=== PATIENT | male | born 1960 | race Caucasian/White ===

== ENCOUNTER 2021-01-22 12:39 | Outpatient (CLI) | payer OTHER, SELFPAY ==
--- NOTE | ~2021-01-22 | MR_ITS ---
EXAMINATION: MR lower leg LT wo con DATE: 01/22/2021 13:45 INDICATION: Localized swelling, mass and lump at the left lower leg TECHNIQUE: Magnetic resonance imaging (MRI) of the left lower leg was performed without intravenous c ontrast. Sequences included axial, sagittal and coronal T1-weighted FSE and fluid sensitive FSE STIR. The contralateral right lower leg is included on the coronal images. COMPARISON: Left tibia/fibular radiographs dated 01/14/2021 FINDINGS: Bone alignment is normal. Nonspecific mild marrow edema underlying the intercondylar eminence at the proximal left femur. Marrow signal is otherwise normal. No fracture or pathologic marrow replacing pr ocess. Symmetric muscle bulk and signal throughout both calves with diffuse minimal fatty atrophy of the bilateral gastrocnemius and soleus muscles which may be related to age. The visualized portions o f the tendons between the knee and ankle appear normal. No abnormal masses or fluid collections ident ified. Neurovascular structures are unremarkable. IMPRESSION: 1. Abnormal masses fluid collections or evident soft tissue swelling at the left calf which appears r elatively symmetric with the right calf. 2. Nonspecific mild marrow edema underlying the intercondylar eminence of the proximal left tibia. Reviewed, dictated and finalized at location B. IMPRESSION: 1. Abnormal masses fluid collections or evident soft tissue swelling at the lef t calf which appears relatively symmetric with the right calf. 2. Nonspecific mild marrow edema underlying the intercondylar eminence of the p roximal left tibia.
== END 2021-01-22 12:40 | disposition home or self-care (01) ==
PROVIDERS: PCP Internal Medicine; Visit Provider Orthopaedic Surgery
DX: R22.42 Localized swelling, mass and lump, left lower limb (principal)
CPT/HCPCS: 73718

== ENCOUNTER → 2021-06-05 13:41 | Outpatient (CLI) | payer OTHER, SELFPAY ==
--- NOTE | ~2021-06-05 | MR_ITS ---
EXAMINATION: MR lumbar spine wo con DATE: 06/05/2021 14:22 INDICATION: Lumbar radiculopathy. TECHNIQUE: Magnetic resonance imaging (MRI) of the lumbar spine was performed without intravenous con trast. Sequences included sagittal T2-weighted FSE, sagittal T2-weighted FS FSE, sagittal T1-weighted FSE, and axial T2-weighted FSE. COMPARISON: Lumbar spine MRI 06/08/2004 FINDINGS: There is 3 degrees dextrocurvature of lumbar spine. There is 6 mm anterolisthesis of L4 on L5. There is mild chronic anterior wedging of T11-L3 vertebral bodies. There is a compression fractur e of inferior endplate of L1 with less than 1/5 loss of height and bone marrow edema. There is modera tely decreased disc height from L1-L2 through L4-L5 and mildly decreased disc height at L5-S1. Epidur al lipomatosis is noted. The distal spinal cord signal intensity is normal. The conus medullaris is a t L1. The following disc levels are specifically discussed: L1-L2: The disc is bulging. There is severe right and moderate left facet joint osteoarthritis. There is mild bilateral neural foraminal stenosis. There is mild central canal stenosis. L2-L3: The disc is bulging and has an annular fissure. There is severe bilateral facet joint osteoart hritis. There is mild bilateral neural foraminal stenosis. There is mild central canal stenosis. L3-L4: The disc is bulging and has an annular fissure. There is severe bilateral facet joint osteoart hritis. There is moderate bilateral neural foraminal stenosis. There is severe central canal stenosis . L4-L5: The disc is bulging and has an annular fissure. There is severe bilateral facet joint osteoart hritis. There is moderate bilateral neural foraminal stenosis. There is severe central canal stenosis . L5-S1: The disc is bulging and has an annular fissure. There is severe bilateral facet joint osteoart hritis. There is mild bilateral neural foraminal stenosis. There is mild central canal stenosis. IMPRESSION: 1. Compression fracture of inferior endplate of L1, likely subacute. 2. Severe lumbar spondylosis. Reviewed, dictated and finalized at location B.
== END ==
PROVIDERS: Visit Provider Nurse Practitioner Adult Health
DX: M47.26 Other spondylosis with radiculopathy, lumbar region (principal)
CPT/HCPCS: 72148

== ENCOUNTER 2021-11-14 08:03 | Emergency (ER) | payer OTHER, SELFPAY ==
--- NOTE | 2021-11-14 08:05 | ED.SKABFB ---
HPI - Skin/Abscess/Foreign Bdy General Chief complaint: Skin/Abscess/Foreign Body Stated complaint: Infection in belly button Time Seen by Provider: 11/14/21 08:10 Source: patient, RN notes reviewed and old records reviewed Mode of arrival: ambulatory Limitations: no limitations History of Present Illness HPI narrative: 61-year-old male presents to the [facility] with redness and inflammation to his bellybutton. States its been there since yesterday. Inside the bellybutton is bright red. Has been applying Neosporin and cleaning it. Noticed some redness surrounding tissue and came to the [facility] for evaluation. Denies fevers. No chest pain or abdominal pain. Related Data Home Medications Medication Instructions Recorded Confirmed alprazolam 1 mg tablet 1 mg PO DAILY 11/07/20 02/21/21 atorvastatin 10 mg tablet 10 mg PO DAILY 11/07/20 02/21/21 Allergies Allergy/AdvReac Type Severity Reaction Status Date / Time No Known Allergies Allergy Verified 11/14/21 08:15 Review of Systems Review of Systems: All systems reviewed & are unremarkable except as noted in HPI and below Constitutional: Constitutional: Reports no additional constitutional complaints, Denies chills and Denies fever(s) Eyes: Eyes: Reports no additional eye complaints ENT: Reports system reviewed and no additional complaints, except as documented Cardiovascular: Cardiovascular: Reports no additional cardiovascular complaints, Denies chest pain and Denies dyspnea Respiratory: Respiratory: Reports no additional respiratory complaints, Denies cough and Denies dyspnea Gastrointestinal: Gastrointestinal: Reports no additional gastrointestinal complaints, Denies abdominal pain, Denies nausea and Denies vomiting Musculoskeletal: Musculoskeletal: Reports no additional musculoskeletal complaints Integumentary/Breasts: Skin/Breast: Reports as per HPI and Reports erythema (Bellybutton) Neurologic: Reports system reviewed and no additional complaints, except as documented Psychiatric: Psychiatric: Reports no additional psychiatric complaints Allergic/Immunologic: Allergic/Immunologic: Reports no additional allergic/immunologic complaints [facility] Past Medical History Medical History (Updated 11/14/21 @ 08:18 by Holli Stout) Anxiety High cholesterol Surgical History Surgical History History of appendectomy History of sinus surgery Social History Social History Smoking packs per day: 1 Smoking cigarettes per day: 20.0 Years smoked: 20 Smoking pack-years: 20.00 Second hand tobacco smoke exposure: Yes Alcohol intake: current Drinks per week: 5 Substance use: never Substance use type: does not use Gender identity (if verbalized by the patient): Male Comments At the time of my signature, I reviewed and agree with the nursing past medical, surgical, social, and family history. There is no relevant family history pertinent to the patient complaint. Exam Const: General: healthy appearing, no acute distress and alert Nutritional Appearance: well nourished and obese Orientation/consciousness: patient oriented x3 Limitations: no limitations HENMT: Head: normal to inspection Eyes: Pupils: Equal, round and reactive pupils present Neck: Neck: normal visual inspection, no lymphadenopathy and no meningeal signs Chest: Chest palpation & inspection: normal inspection of the chest Resp: Effort & Inspection: normal respiratory effort Cardio: Rate: regular rate Rhythm: regular rhythm GI: GI Palp: Yes Soft to palpation, No Tenderness to palpation present (GI) and No Guarding due to palpation present (GI) Skin: Other: Erythema bellybutton with surrounding redness. No swelling noted. Has mild increased warmth. Some yellowish drainage noted and collected for culture Neuro: General: patient oriented x3, moves all extremities, no m
[2021-11-14 08:11] VITALS: BP 165/78; PULSE 92; RESP 16; TEMP 36.1; O2SAT 100
== END 2021-11-14 08:27 | disposition home or self-care (01) ==
PROVIDERS: Emergency Provider Nurse Practitioner; PCP Internal Medicine
DX: L03.316 Cellulitis of umbilicus (principal); F17.210 Nicotine dependence, cigarettes, uncomplicated; F41.9 Anxiety disorder, unspecified; E78.00 Pure hypercholesterolemia, unspecified
CPT/HCPCS: 87070; 87075; 87205; 99213; G0463

== ENCOUNTER 2021-11-18 10:11 | Emergency (ER) | payer OTHER, SELFPAY ==
[2021-11-18 10:18] VITALS: BP 169/79; PULSE 97; RESP 16; TEMP 36.3; O2SAT 100
--- NOTE | 2021-11-18 10:26 | ED.SKABFB ---
HPI - Skin/Abscess/Foreign Bdy General Chief complaint: Skin/Abscess/Foreign Body Stated complaint: Bumps on Navel Time Seen by Provider: 11/18/21 10:28 Source: patient, RN notes reviewed and old records reviewed Mode of arrival: ambulatory Limitations: no limitations History of Present Illness HPI narrative: 61-year-old male returns to the [facility] with complaints of the cellulitis is now having vesicular areas around the umbilicus. States that the redness has improved the umbilical area. Denies any pain. Has been using bacitracin and taking the Bactrim as prescribed. Related Data Home Medications Medication Instructions Recorded Confirmed alprazolam 1 mg tablet 1 mg PO DAILY 11/07/20 11/18/21 atorvastatin 10 mg tablet 10 mg PO DAILY 11/07/20 11/18/21 Allergies Allergy/AdvReac Type Severity Reaction Status Date / Time No Known Allergies Allergy Verified 11/18/21 10:15 Review of Systems Review of Systems: All systems reviewed & are unremarkable except as noted in HPI and below Constitutional: Constitutional: Reports no additional constitutional complaints, Denies chills and Denies fever(s) Eyes: Eyes: Reports no additional eye complaints ENT: Reports system reviewed and no additional complaints, except as documented Cardiovascular: Cardiovascular: Reports no additional cardiovascular complaints, Denies chest pain and Denies dyspnea Respiratory: Respiratory: Reports no additional respiratory complaints, Denies cough and Denies dyspnea Gastrointestinal: Gastrointestinal: Reports no additional gastrointestinal complaints, Denies abdominal pain, Denies nausea and Denies vomiting Musculoskeletal: Musculoskeletal: Reports no additional musculoskeletal complaints Integumentary/Breasts: Skin/Breast: Reports as per HPI and Reports rash (Umbilical area) Neurologic: Reports system reviewed and no additional complaints, except as documented Psychiatric: Psychiatric: Reports no additional psychiatric complaints Allergic/Immunologic: Allergic/Immunologic: Reports no additional allergic/immunologic complaints [facility] Past Medical History Medical History (Updated 11/18/21 @ 10:38 by Holli Stout) Anxiety High cholesterol Surgical History Surgical History History of appendectomy History of sinus surgery Social History Social History Smoking packs per day: 1 Smoking cigarettes per day: 20.0 Years smoked: 20 Smoking pack-years: 20.00 Second hand tobacco smoke exposure: Yes Alcohol intake: current Drinks per week: 5 Substance use: never Substance use type: does not use Gender identity (if verbalized by the patient): Male Comments At the time of my signature, I reviewed and agree with the nursing past medical, surgical, social, and family history. There is no relevant family history pertinent to the patient complaint. Exam Const: General: healthy appearing, no acute distress and alert Nutritional Appearance: well nourished Orientation/consciousness: patient oriented x3 Limitations: no limitations HENMT: Head: normal to inspection Ears: external ears normal Eyes: Pupils: Equal, round and reactive pupils present Neck: Neck: normal visual inspection, no lymphadenopathy and no meningeal signs Chest: Chest palpation & inspection: normal inspection of the chest Resp: Effort & Inspection: normal respiratory effort and no use of accessory muscles Auscultation: clear to auscultation bilaterally Cardio: Rate: regular rate Rhythm: regular rhythm GI: GI Palp: Yes Soft to palpation, No Tenderness to palpation present (GI), No Guarding due to palpation present (GI) and No Rigid due to palpation Skin: General skin exam: crusts (Cyst right side of the umbilicus), no ecchymosis and no erythema Trauma: no lacerations or abrasions Wounds: no wounds Other: Multiple vesicular areas around the umbi
== END 2021-11-18 10:55 | disposition home or self-care (01) ==
PROVIDERS: Emergency Provider Nurse Practitioner; PCP Internal Medicine
DX: L01.00 Impetigo, unspecified (principal); F17.210 Nicotine dependence, cigarettes, uncomplicated; E78.00 Pure hypercholesterolemia, unspecified; F41.9 Anxiety disorder, unspecified
CPT/HCPCS: 99213; G0463

== ENCOUNTER 2022-10-15 08:06 | Emergency (ER) | payer OTHER, SELFPAY ==
--- NOTE | 2022-10-15 08:08 | ED.URI ---
HPI - URI/Sore Throat General Chief Complaint: Upper Respiratory Infection Stated Complaint: uri Time Seen by Provider: 10/15/22 08:07 Source: patient Mode of arrival: ambulatory Limitations: no limitations History of Present Illness HPI Narrative: Mr. Ni is a 62-year-old male patient presenting to the clinic today with complaints of runny nose, cough, and sinus pressure x 2 days. He reports no fever or chills. No known exposure to anybody with COVID, flu, or strep MD elicited complaint: sore throat and nasal congestion Related Data Home Medications Medication Instructions Recorded Confirmed alprazolam 1 mg tablet 1 mg PO DAILY 11/07/20 10/15/22 atorvastatin 10 mg tablet 10 mg PO DAILY 11/07/20 10/15/22 Allergies Allergy/AdvReac Type Severity Reaction Status Date / Time No Known Allergies Allergy Verified 11/18/21 10:15 Review of Systems Review of Systems: Pertinent positives per HPI. Patient denies any fever, chills, rash, headache, visual changes, dizziness, cough, shortness of breath, chest pain, palpitations, nausea, vomiting, diarrhea, constipation, abdominal pain, or any urinary issues. [facility] Past Medical History Medical History Anxiety High cholesterol Surgical History Surgical History History of appendectomy History of sinus surgery Social History Social History Smoking packs per day: 1 Smoking cigarettes per day: 20.0 Years smoked: 20 Smoking pack-years: 20.00 Second hand tobacco smoke exposure: Yes Alcohol intake: current Drinks per week: 5 Substance use: never Substance use type: does not use Gender identity (if verbalized by the patient): Male Comments At the time of my signature, I reviewed and agree with the nursing past medical, surgical, social, and family history. There is no relevant family history pertinent to the patient complaint. Exam Narrative: General: Well-developed, well nourished, in no apparent distress Head: Normocephalic, atraumatic Eyes: Pupils equally round and reactive to light bilaterally, EOM intact, sclera and conjunctive clear, no discharge, lids normal Ears: TMs intact and clear, ear canals clear, no drainage, grossly hearing normal. Nose: Nares patent, clear nasal discharge, no inflammation, no sinus tenderness. Mouth: Oral pharynx without lesions or masses, good dentition, MMM. Neck: Supple, trachea midline, no enlargement of anterior or posterior cervical nodes, no thyroid masses or goiter palpable. Cardio: Regular rate and rhythm, s1 and s2 normal, no murmur appreciated. Resp: Clear to auscultation bilaterally, no rhonchi, rales, wheezing or rubs Course Course Emergency Course: Portions of this record may have been created with voice recognition software. Level of Care: Express Care Visit Vital Signs Vital signs: Vital signs reviewed MDM - URI/Sore Throat MDM Narrative Medical decision making narrative: At the time of visit patient is resting comfortably on the exam table. I suspect patient has URI. Prescription for prednisone was sent to the pharmacy and supportive measures were discussed with the patient he voiced understanding discharge instructions and agrees to treatment plan. Differential Diagnosis Differential diagnosis: Likely upper respiratory infection, otitis media, sinusitis, viral infection, bronchitis, influenza, pharyngitis and other ( COVID) Discharge Plan Discharge Clinical Impression: Acute upper respiratory infection Patient Disposition: Home, Self-Care Condition: Stable Instructions: Antibiotic Form, Upper Respiratory Infection (ED) Additional Instructions: Take prescription medications only as prescribed- prednisone Increase fluids and stay well hydrated Tylenol/motrin for pain/fever Flonase a
[2022-10-15 08:17] VITALS: BP 140/81; PULSE 108; RESP 16; TEMP 36.6; O2SAT 99
== END 2022-10-15 08:24 | disposition home or self-care (01) ==
PROVIDERS: Emergency Provider Nurse Practitioner Family; PCP Internal Medicine
DX: J06.9 Acute upper respiratory infection, unspecified (principal); F41.9 Anxiety disorder, unspecified; E78.00 Pure hypercholesterolemia, unspecified; F17.210 Nicotine dependence, cigarettes, uncomplicated
CPT/HCPCS: 99213; G0463

== ENCOUNTER 2022-10-29 11:15 | Emergency (ER) | payer OTHER, SELFPAY ==
[2022-10-29 11:25] VITALS: BP 155/80; PULSE 89; RESP 16; TEMP 36.6; O2SAT 100
--- NOTE | 2022-10-29 12:23 | ED.URI ---
HPI - URI/Sore Throat General Chief Complaint: Upper Respiratory Infection Stated Complaint: uri Time Seen by Provider: 10/29/22 12:18 Source: patient and RN notes reviewed Mode of arrival: ambulatory Limitations: no limitations History of Present Illness HPI Narrative: 62-year-old male presented for complaint of sinus pressure and congestion for over 2 weeks. He has taken a steroid as prescribed at the onset of symptoms but the pressure, headache, and ears feeling clogged has persisted. He is taking antihistamines, Flonase and [id number] medication without relief. Denies shortness of breath, wheezing, nausea, vomiting, diarrhea, fevers or chills. MD elicited complaint: cough Related Data Home Medications Medication Instructions Recorded Confirmed alprazolam 1 mg tablet 1 mg PO DAILY 11/07/20 10/15/22 atorvastatin 10 mg tablet 10 mg PO DAILY 11/07/20 10/15/22 Allergies Allergy/AdvReac Type Severity Reaction Status Date / Time No Known Allergies Allergy Verified 10/29/22 11:25 Review of Systems Review of Systems: Per [facility] Past Medical History Medical History Anxiety High cholesterol Surgical History Surgical History History of appendectomy History of sinus surgery Social History Social History Smoking packs per day: 1 Smoking cigarettes per day: 20.0 Years smoked: 20 Smoking pack-years: 20.00 Second hand tobacco smoke exposure: Yes Alcohol intake: current Drinks per week: 5 Substance use: never Substance use type: does not use Gender identity (if verbalized by the patient): Male Exam Narrative: GENERAL: well-appearing EYES: PERRLA, conjunctivae clear ENT: Mucous membranes moist. TM pearly curtis with dull light reflex bilaterally; no tragal tenderness. Oropharynx without lesions or exudate CHEST: Clear to auscultation, breath sounds equal. No wheezing, rhonchi, rales, or stridor. No respiratory distress, speaks in full sentences. HEART: Regular rate and rhythm. No murmur heard. SKIN: Warm, dry, no rash. NEURO: Alert and oriented x3. PSYCH: Normal mood and affect Course Course Emergency Course: Patient is aware of diagnosis, understands and agrees to treatment plan. Anticipatory guidance given. Patient agrees to follow-up as directed and is aware of reasons to seek care at the emergency department. Portions of this record may have been created with voice recognition software Level of Care: Express Care Visit Vital Signs Vital signs: Vital Signs Temperature 97.9 F 10/29/22 11:25 Pulse Rate 89 10/29/22 11:25 Respiratory Rate 16 10/29/22 11:25 Blood Pressure 155/80 H 10/29/22 11:25 Pulse Oximetry 100 10/29/22 11:25 Oxygen Delivery Room Air 10/29/22 11:25 Temperature 97.9 F 10/29/22 11:25 Pulse Rate 89 10/29/22 11:25 Respiratory Rate 16 10/29/22 11:25 Blood Pressure 155/80 H 10/29/22 11:25 Pulse Oximetry 100 10/29/22 11:25 Oxygen Delivery Room Air 10/29/22 11:25 reviewed MDM - URI/Sore Throat MDM Narrative Medical decision making narrative: Advised supportive measures and signs/symptoms to go to the ER. Pt is appropriate for outpt treatment and f/u. Differential Diagnosis Differential diagnosis: Likely upper respiratory infection, sinusitis and viral infection Discharge Plan Discharge Clinical Impression: Upper respiratory infection Patient Disposition: Home, Self-Care Condition: Stable Instructions: Antibiotic Form, Rhinosinusitis (ED) Additional Instructions: Take medication as directed Continue Flonase spray and Zyrtec (or Claritin/Laura) over the counter Cough syrup may cause drowsiness; avoid driving or take it at night time. Tylenol 1000mg every 8 hours as needed for pain Symptomatic treatment includes: rest, fluids,
== END 2022-10-29 12:26 | disposition home or self-care (01) ==
PROVIDERS: Emergency Provider Nurse Practitioner Family; PCP Internal Medicine
DX: J06.9 Acute upper respiratory infection, unspecified (principal); F17.210 Nicotine dependence, cigarettes, uncomplicated; F41.9 Anxiety disorder, unspecified; E78.00 Pure hypercholesterolemia, unspecified
CPT/HCPCS: 99213; G0463

== ENCOUNTER 2022-12-18 08:04 | Emergency (ER) | payer OTHER, SELFPAY ==
[2022-12-18 08:16] VITALS: BP 149/76; PULSE 84; RESP 16; TEMP 36.7; O2SAT 99
--- NOTE | 2022-12-18 08:33 | ED.SKABFB ---
HPI - Skin/Abscess/Foreign Bdy General Chief complaint: Skin/Abscess/Foreign Body Stated complaint: ear infection Time Seen by Provider: 12/18/22 08:33 Source: patient Mode of arrival: ambulatory Limitations: no limitations History of Present Illness HPI narrative: patient is a 62-year-old man having right ear redness, swelling, wound since Thursday. patient states he has used Bactroban and triple antibiotic ointment with no relief. patient reports using Q-tips in the ear canal. states it drained at night and uses a tissue. denies any pain around the ear. Related Data Home Medications Medication Instructions Recorded Confirmed alprazolam 1 mg tablet 1 mg PO DAILY 11/07/20 12/18/22 atorvastatin 10 mg tablet 10 mg PO DAILY 11/07/20 12/18/22 metoprolol succinate 25 mg 25 mg PO DAILY 12/18/22 12/18/22 tablet,extended release 24 hr Allergies Allergy/AdvReac Type Severity Reaction Status Date / Time No Known Allergies Allergy Verified 12/18/22 08:11 Review of Systems Review of Systems: CONSTITUTIONAL: Denies malaise, chills, sweats, or fever.? EYES: Denies visual changes, redness, or discharge.? ENT: denies rhinorrhea, congestion, sore throat.? reports right otalgia CARDIOVASCULAR: Denies chest pain, palpitations, or edema.? RESPIRATORY: Denies dyspnea and cough? GASTROINTESTINAL: Denies abdominal pain, nausea, vomiting, diarrhea? SKIN: Denies rash or itching.? MUSCULOSKELETAL: Denies myalgia.? NEUROLOGIC: Denies headache All systems reviewed & are unremarkable except as noted in HPI and below PMFSH Past Medical History Medical History Anxiety High cholesterol Surgical History Surgical History History of appendectomy History of sinus surgery Social History Social History Smoking packs per day: 1 Smoking cigarettes per day: 20.0 Years smoked: 20 Smoking pack-years: 20.00 Second hand tobacco smoke exposure: Yes Alcohol intake: current Drinks per week: 5 Substance use: never Substance use type: does not use Gender identity (if verbalized by the patient): Male Comments At time of signature, agree with nursing past medical, surgical, social and family history. There is no relevant family history pertinent to the presenting complaint? Exam Narrative: GENERAL: Well-appearing, well-nourished, and in no acute distress.? HEAD: Normocephalic, atraumatic.? EYES: PERRLA, conjunctivae clear, and EOMI. No nystagmus.? ENT: Nares clear, turbinates pink, no rhinorrhea or epistaxis. Mucous membranes moist. TM pearly curtis with sharp light reflex bilaterally; no tragal tenderness. right external ear and with edema and erythema, right ear canal with edema noted. no pre or post articular tenderness or lymphadenopathy. no mastoid tenderness. Oropharynx without erythema or lesions. Tonsils not enlarged and without exudate.? NECK: Supple. No lymphadenopathy. No jugular venous distension, thyromegaly, or carotid bruits. Carotids were easily palpable bilaterally.?? CHEST: No respiratory distress. Clear to auscultation.? No bony deformities, no asymmetry. Speaks in full sentences.? HEART: Regular rate and rhythm. SKIN: Warm, dry, no rash.? NEURO: Alert and oriented x3. No focal deficits. PSYCH: Normal mood and affect? Course Course Emergency Course: Patient is aware of diagnosis, understands and agrees to treatment plan.? Anticipatory guidance given.? Patient agrees to follow-up as directed and is aware of reasons to seek care at the emergency department.? Portions of this record may have been created with voice recognition software? Level of Care: Express Care Visit Vital Signs Vital signs: Vital Signs Temperature 36.7 C 12/18/22 08:16 Pulse Rate 84 12/18/22 08:16 Respiratory Rate 16 12/18/22 08:16 Blood Pressure 149/76 H 0
== END 2022-12-18 08:52 | disposition home or self-care (01) ==
PROVIDERS: Emergency Provider Nurse Practitioner Family; PCP Internal Medicine
DX: H60.91 Unspecified otitis externa, right ear (principal); F41.9 Anxiety disorder, unspecified; F17.210 Nicotine dependence, cigarettes, uncomplicated
CPT/HCPCS: 99213; G0463

== ENCOUNTER → 2023-07-02 07:52 | Outpatient (CLI) | payer OTHER, SELFPAY ==
--- NOTE | ~2023-07-02 | MR_ITS ---
EXAMINATION: MR knee RT wo con DATE: 07/02/2023 08:22 INDICATION: Right knee pain. TECHNIQUE: Magnetic resonance imaging (MRI) of the right knee was performed without intravenous contr ast. Sequences included axial PD-weighted FS FSE, coronal PD-weighted FSE and PD-weighted FS FSE, sag ittal PD-weighted FSE, and sagittal T2-weighted FS FSE. COMPARISON: Right knee radiographs 05/27/2023 FINDINGS: Medial compartment: There is an undersurface horizontal tear involving body and posterior horn of medial meniscus. There is cartilage surface irregularity of tibial condyle and femoral condyle. There are tiny osteophytes. Lateral compartment: Lateral meniscus is normal. Lateral compartment cartilage is normal. There are tiny osteophytes. Patellofemoral compartment: There is deep partial thickness cartilage loss of patellar medial facet with mild subchondral edema-l arlyn marrow signal intensity. There is deep cartilage fissuring of patellar lateral facet. There is fu ll-thickness cartilage loss of central trochlea with mild subchondral edema-like marrow signal intens ity. There is shallow partial-thickness cartilage loss of medial and lateral trochlea. Osteophytes ar e noted. Ligaments and tendons: The anterior and posterior cruciate ligaments are normal. There are changes of prior sprains of media l collateral ligament and fibular collateral ligament characterized increased signal intensity proxim ally. There is mild patellar tendinopathy. Fluid: There is a small knee joint effusion. There is mild prepatellar bursitis. IMPRESSION: 1. Severe chondrosis of patellofemoral compartment and mild chondrosis of medial compartment. 2. Tear of medial meniscus. 3. Small knee joint effusion. Reviewed, dictated and finalized at location A. IMPRESSION: 1. Severe chondrosis of patellofemoral compartment and mild chondrosis of media l compartment. 2. Tear of medial meniscus. 3. Small knee joint effusion.
== END ==
PROVIDERS: PCP Orthopaedic Surgery; Visit Provider Orthopaedic Surgery
DX: M25.461 Effusion, right knee (principal); S83.241D Other tear of medial meniscus, current injury, right knee, subsequent encounter; X58.XXXD Exposure to other specified factors, subsequent encounter
CPT/HCPCS: 73721

== ENCOUNTER 2023-10-06 12:46 | Emergency (ER) | payer OTHER, SELFPAY ==
[2023-10-06 13:01] VITALS: BP 158/93; PULSE 106; RESP 16; TEMP 36.3; O2SAT 99
--- NOTE | 2023-10-06 13:12 | ED.URI ---
HPI - URI/Sore Throat General Chief Complaint: Upper Respiratory Infection Stated Complaint: Sinus Time Seen by Provider: 10/06/23 13:12 Source: patient and RN notes reviewed Mode of arrival: ambulatory Limitations: no limitations History of Present Illness HPI Narrative: 63-year-old male presented for complaint of sinus pressure and congestion with bilateral ear pressure over the past few days. He endorses a history of chronic sinusitis, and has been using Flonase and Claritin without relief. He denies dizziness, shortness of breath, wheezing, nausea, vomiting, diarrhea, fevers or chills. Reports chronic left tinnitus without change. MD elicited complaint: cough Related Data Home Medications Medication Instructions Recorded Confirmed alprazolam 1 mg tablet 1 mg PO DAILY 11/07/20 10/06/23 atorvastatin 10 mg tablet 10 mg PO DAILY 11/07/20 10/06/23 metoprolol succinate 25 mg 25 mg PO DAILY 12/18/22 10/06/23 tablet,extended release 24 hr Allergies Allergy/AdvReac Type Severity Reaction Status Date / Time No Known Allergies Allergy Verified 05/27/23 14:22 Review of Systems Review of Systems: CONSTITUTIONAL: Denies malaise, chills, sweats, fever EYES: Denies visual changes, redness, or discharge ENT: Reports rhinorrhea, congestion, sinus pain, otalgia CARDIOVASCULAR: Denies chest pain, palpitations, edema RESPIRATORY: Denies dyspnea or cough GASTROINTESTINAL: Denies abdominal pain, nausea, vomiting, diarrhea SKIN: Denies rash or itching MUSCULOSKELETAL: denies myalgia NEUROLOGIC: Denies headache [facility] Past Medical History Medical History Anxiety High cholesterol Surgical History Surgical History History of appendectomy History of sinus surgery Social History Social History Smoking packs per day: 1 Smoking cigarettes per day: 20.0 Years smoked: 20 Smoking pack-years: 20.00 Smoking status: Unknown if ever smoked Second hand tobacco smoke exposure: Yes Alcohol intake: current Drinks per week: 5 Substance use: never Substance use type: does not use Gender identity (if verbalized by the patient): Male Exam Narrative: GENERAL: mildly ill-appearing, nontoxic no acute distress. EYES: conjunctivae clear ENT: Mucous membranes moist. Maxillary sinus tenderness. TMs pearly curtis with dull light reflex bilaterally; no tragal tenderness. Oropharynx not erythematous without lesions or exudate, no drooling, no hoarseness, no trismus, uvula midline. No tripod positioning, muffled voice, soft palate or pharyngeal wall bulging NECK: Supple. No lymphadenopathy CHEST: Clear to auscultation, breath sounds equal. No wheezing, rhonchi, rales, or stridor. No respiratory distress, speaks in full sentences. HEART: Regular rate and rhythm. No murmur heard. SKIN: Warm, dry, no rash. NEURO: Alert and oriented x3. PSYCH: Normal mood and affect Course Course Emergency Course: Patient is aware of diagnosis, understands and agrees to treatment plan. Anticipatory guidance given. Patient agrees to follow-up as directed and is aware of reasons to seek care at the emergency department. Portions of this record may have been created with voice recognition software Level of Care: Express Care Visit Vital Signs Vital signs: Vital Signs Temperature 97.4 F L 10/06/23 13:01 Pulse Rate 106 H 10/06/23 13:01 Respiratory Rate 16 10/06/23 13:01 Blood Pressure 158/93 H 10/06/23 13:01 Pulse Oximetry 99 10/06/23 13:01 Oxygen Delivery Room Air 10/06/23 13:01 Temperature 97.4 F L 10/06/23 13:01 Pulse Rate 106 H 10/06/23 13:01 Respiratory Rate 16 10/06/23 13:01 Blood Pressure 158/93 H 10/06/23 13:01 Pulse Oximetry 99 10/06/23 13:01 Oxygen Delivery Room Air 10/06/23 13:01 reviewed MDM - URI/S
== END 2023-10-06 13:25 | disposition home or self-care (01) ==
PROVIDERS: Emergency Provider Nurse Practitioner Family; PCP Internal Medicine
DX: J06.9 Acute upper respiratory infection, unspecified (principal); F17.210 Nicotine dependence, cigarettes, uncomplicated; Z79.899 Other long term (current) drug therapy
CPT/HCPCS: 99213; G0463

== ENCOUNTER 2025-07-20 08:03 | Emergency (ER) | payer OTHER, SELFPAY ==
[2025-07-20 08:07] VITALS: BP 146/80; PULSE 100; RESP 16; TEMP 36.3; O2SAT 98
--- NOTE | 2025-07-20 08:21 | ED.URI ---
HPI - URI/Sore Throat General Chief Complaint: Upper Respiratory Infection Stated Complaint: sinus congestion Time Seen by Provider: 07/20/25 08:09 Patient presents to the [facility] care with complaints of worsening nasal congestion, frontal sinus pain, headaches, fullness in ears, nasal drainage, and fatigue. Patient noted a long history sinus problems and noticed an increase in sinus symptoms a little over 1 week ago. Patient does travel frequently for work in the last 3-4 days symptoms have gotten significantly worse. Patient also noted possible fever yesterday symptoms of feeling feverish relieved after taking Tylenol did not take temperature. Patient does report a history of a sinus surgery many years ago but is not seen ear Nose and Throat many years. Patient also using daily antihistamines with Flonase nasal spray. Denies dizziness, shortness of breath, nausea, vomiting, diarrhea. Related Data Home Medications ?Medication ?Instructions ?Recorded ?Confirmed ?Last Taken ?Type alprazolam 1 mg tablet 1 mg PO DAILY 11/07/20 04/20/25 Unknown History atorvastatin 10 mg tablet 10 mg PO DAILY 11/07/20 04/20/25 Unknown History metoprolol succinate 25 mg 25 mg PO DAILY 12/18/22 04/20/25 Unknown History tablet,extended release 24 hr hydrochlorothiazide 12.5 mg tablet 12.5 mg PO DAILY 05/17/25 Unknown History lisinopril 20 tablet 07/20/25 Unknown History mg-hydrochlorothiazide 25 mg tablet Allergies Allergy/AdvReac Type Severity Reaction Status Date / Time No Known Allergies Allergy Verified 07/20/25 08:17 Review of Systems Constitutional: Constitutional: Reports as per HPI, Denies chills, Reports fatigue, Reports fever(s) and Denies weakness Eyes: Eyes: Reports no additional eye complaints ENT: Reports as per HPI, Denies vertigo, Denies dizziness, Reports nasal congestion and Denies sore throat Comments: Nasal drainage, sinus pain Cardiovascular: Cardiovascular: Reports no additional cardiovascular complaints Respiratory: Respiratory: Reports as per HPI, Reports chest congestion, Reports cough, Denies dyspnea and Denies wheezing Gastrointestinal: Gastrointestinal: Reports no additional gastrointestinal complaints Genitourinary: Genitourinary: Reports no additional male genitourinary complaints Musculoskeletal: Musculoskeletal: Reports no additional musculoskeletal complaints Integumentary/Breasts: Skin/Breast: Reports as per HPI, Denies erythema and Denies rash Neurologic: Reports as per HPI, Denies vertigo, Denies dizziness, Reports headache(s), Denies numbness and Denies weakness Psychiatric: Psychiatric: Reports no additional psychiatric complaints Endocrine: Endocrine: Reports no additional endocrine complaints Hematologic/Lymphatic: Hematologic/Lymphatic: Reports no additional hematologic/lymphatic complaints Allergic/Immunologic: Allergic/Immunologic: Reports as per HPI Comments: chronic sinusitis, seasonal allergies PMFSH Past Medical History Medical History Anxiety High cholesterol Surgical History Surgical History History of sinus surgery History of appendectomy Social History Social History Smoking packs per day: 1 Smoking cigarettes per day: 20.0 Years smoked: 20 Smoking pack-years: 20.00 Smoking status: Unknown if ever smoked Second hand tobacco smoke exposure: Yes Alcohol intake: current Drinks per week: 5 Substance use: never Substance use type: does not use Gender identity (if verbalized by the patient): Male Exam Const: General: healthy appearing and no acute distress Nutritional Appearance: well nourished Orientation/consciousness: patient oriented x3 Limitations: no limitations HENMT: Head: normal to inspection Ears: external ears normal and TM's normal bilaterally Face/Nose/Sinus: Normal external nose present, nares abnormal ( mild erythema and edema bilaterall) and no nasal discharge noted Face and sinus: normal facial exam and sinus tenderness frontal Mouth: Yes Normal oral and palatal mucosa present, Yes lip normal and Yes moist mucous membranes Throat: posterior oropharynx abnormal ( minimal erythema, no edema or exudate) Neck: Neck: normal visual inspection and no lymphadenopathy Resp: Effort & Inspection: normal respiratory effort Auscultation: clear to auscultation bilaterally Cardio: Rate: regular rate Rhythm: regular rhythm Skin: General skin exam: normal color Rashes: no rashes Wounds: no wounds Neuro: General: patient oriented x3 Speech: normal speech Gait exam (Neuro): Normal gait present Extrem: General: no clubbing, cyanosis or edema and no pedal edema Psych: Mental Status: mental status grossly normal Affect: normal affect Attitude: cooperative Course Course Level of Care: Express Care Visit Vital Signs Vital signs: Vital Signs Temperature 97.4 F L 07/20/25 08:07 Pulse Rate 100 07/20/25 08:07 Respiratory Rate 16 07/20/25 08:07 Blood Pressure 146/80 H 07/20/25 08:07 Pulse Oximetry 98 07/20/25 08:07 Oxygen Delivery Room Air 07/20/25 08:07 Temperature 97.4 F L 07/20/25 08:07 Pulse Rate 100 07/20/25 08:07 Respiratory Rate 16 07/20/25 08:07 Blood Pressure 146/80 H 07/20/25 08:07 Pulse Oximetry 98 07/20/25 08:07 Oxygen Delivery Room Air 07/20/25 08:07 MDM - URI/Sore Throat MDM Narrative Medical decision making narrative: flu, strep, COVID negative. Greater than 7 days of symptoms treat for sinus infection. Patient has chronic sinusitis and history sinus surgery The patient was evaluated by myself in the [facility] care. History is obtained from patient who is an independent historian and physical exam was performed. Available medical records were reviewed at this time. Exam findings show no acute concerns or changes; patient is non-toxic appearing and is in no distress. Patient is appropriate for outpatient treatment and follow-up. I have evaluated and discussed social determinants of health with the patient that could potentially impact subsequent diagnosis and treatment plans. Differential diagnosis and treatment plan were discussed with the patient. Patient agrees with discussion and after shared medical decision making agrees with plan of care. All questions were answered to the patient's satisfaction. Differential Diagnosis Differential diagnosis: Likely upper respiratory infection, croup, otitis media, sinusitis, bronchitis, influenza and pharyngitis Medical Records Attestation: I reviewed the patient's medical records. Lab Data Attestation: I reviewed the patient's lab results. Lab results narrative: strep, flu, covid negative. Discharge Plan Discharge Clinical Impression: Sinusitis Patient Disposition: Home Condition: Stable Instructions: Antibiotic Form, Sinusitis (ED), Rhinosinusitis (ED) Additional Instructions: Take the antibiotics as directed for the entire course. Do not miss any doses. What you are taking antibiotics and is recommended to take a probiotic or have yogurt daily to return the good gut bacteria to your system. This can also help with acute diarrhea while taking antibiotics. A can take 24-48 hours for the antibiotics the cake in to relieve your symptoms continue to take these medications to help with various symptoms: Tylenol or Motrin for pain, headache, or fever Flonase/fluticasone or Nasacort/triamcinolone nasal spray- helps with congestion and nasal drainage. Sudafed/pseudoephedrine helps with sinus pain and congestion. Caution with high blood pressure. Use a humidifier or vaporizer at night. Drink plenty of water. 8-10 glasses per day. Mucinex/guaifenesinas directed and be sure to take with 8oz of water. Warm compresses over the forehead and cheeks to promote sinus drainage. Return to urgent care or go to the ER for new or worsening symptoms. Follow up with Primary provider if not improved after 1 week. ENT at [facility]- [phone]- Dr Ramos, Dr Mueller, Dr Ochoa, Dr Bo Patient Language: Estonian Prescriptions: New amoxicillin-pot clavulanate 875-125 mg tablet 1 tablet PO Q12H Qty: 20 0RF No Action metoprolol succinate 25 mg tablet extended release 24 hr 25 mg PO DAILY lisinopril-hydrochlorothiazide 20-25 mg tablet alprazolam 1 mg tablet 1 mg PO DAILY atorvastatin 10 mg tablet 10 mg PO DAILY hydrochlorothiazide 12.5 mg tablet 12.5 mg PO DAILY Follow-up/Referrals: Aleks,DANITA Conway [Primary Care Provider, Unknown] Time of Disposition: 08:43
[2025-07-20 08:46] LABS: EDCOVIDSCREEN Negative (Negative); EDINFLUASCREEN Negative (Negative); EDINFLUBSCREEN Negative (Negative)
[2025-07-20 08:49] LABS: EDSTREPNEGPOS1 Negative (Negative)
== END 2025-07-20 08:48 | disposition home or self-care (01) ==
PROVIDERS: Emergency Provider Nurse Practitioner Family; PCP Physician Assistant Medical
DX: J32.9 Chronic sinusitis, unspecified (principal); F17.210 Nicotine dependence, cigarettes, uncomplicated; Z20.822 Contact with and (suspected) exposure to COVID-19
CPT/HCPCS: 87081; 87426; 87804; 87880; 99213; G0463

== ENCOUNTER 2025-08-29 12:20 | Emergency (ER) | payer OTHER, SELFPAY ==
--- NOTE | 2025-08-29 12:23 | ED.BACK ---
HPI - Back Pain/Injury General Chief Complaint: Back Pain/Injury Stated Complaint: Back Pain Time Seen by Provider: 08/29/25 12:23 Source: patient Mode of arrival: ambulatory Limitations: no limitations History of Present Illness HPI Narrative: Osman is a 65 year old male patient presenting to the clinic today with c/o right upper back pain x1 week. He reports he recently started working out and he has been riding a bike and lifting weights. Has tried heating pad and stretching without much relief. States he does not like to take any NSAIDs due to his blood pressure. Denies any chest pain or shortness of breath. Related Data Home Medications ?Medication ?Instructions ?Recorded ?Confirmed ?Last Taken ?Type alprazolam 1 mg tablet 1 mg PO DAILY 11/07/20 04/20/25 Unknown History atorvastatin 10 mg tablet 10 mg PO DAILY 11/07/20 04/20/25 Unknown History metoprolol succinate 25 mg 25 mg PO DAILY 12/18/22 04/20/25 Unknown History tablet,extended release 24 hr hydrochlorothiazide 12.5 mg tablet 12.5 mg PO DAILY 05/17/25 Unknown History lisinopril 20 tablet 07/20/25 Unknown History mg-hydrochlorothiazide 25 mg tablet Allergies Allergy/AdvReac Type Severity Reaction Status Date / Time No Known Allergies Allergy Verified 08/29/25 12:33 Review of Systems Review of Systems: Pertinent positives per HPI. Patient denies any fever, chills, rash, headache, visual changes, dizziness, cough, runny nose, sore throat, shortness of breath, chest pain, palpitations, nausea, vomiting, diarrhea, constipation, abdominal pain, or any urinary issues. [facility] Past Medical History Medical History Anxiety High cholesterol Surgical History Surgical History History of sinus surgery History of appendectomy Social History Social History Smoking packs per day: 1 Smoking cigarettes per day: 20.0 Years smoked: 20 Smoking pack-years: 20.00 Second hand tobacco smoke exposure: Yes Alcohol intake: current Drinks per week: 5 Substance use: never Substance use type: does not use Gender identity (if verbalized by the patient): Male Comments At the time of my signature, I reviewed and agree with the nursing past medical, surgical, social, and family history. There is no relevant family history pertinent to the patient complaint. Exam Narrative: General: Well-developed, well nourished, in no apparent distress Head: Normocephalic, atraumatic. Cardio: Regular rate and rhythm, s1 and s2 normal, no murmur appreciated. Resp: Clear to auscultation bilaterally, no rhonchi, rales, wheezing or rubs. Musculoskeletal: No deformity, no tenderness over the cervical, thoracic, or lumbar spine, tender to palpation over the right trapezius musculature, pain with movement of the right arm against resistance over the right trapezius musculature, grossly normal range of motion, muscle strength strong and equal in BLE. SLT negative, patellar reflexes 2/4 bilaterally, negative foot drop, normal gait and station Course Course Emergency Course: Portions of this record may have been created with voice recognition software. Level of Care: Express Care Visit Vital Signs Vital signs: Vital Signs Temperature 36.6 C 08/29/25 12:28 Pulse Rate 91 08/29/25 12:28 Respiratory Rate 18 08/29/25 12:28 Blood Pressure 147/77 H 08/29/25 12:28 Pulse Oximetry 100 08/29/25 12:28 Oxygen Delivery Room Air 08/29/25 12:28 Temperature 36.6 C 08/29/25 12:28 Pulse Rate 91 08/29/25 12:28 Respiratory Rate 18 08/29/25 12:28 Blood Pressure 147/77 H 08/29/25 12:28 Pulse Oximetry 100 08/29/25 12:28 Oxygen Delivery Room Air 08/29/25 12:28 Vital signs reviewed MDM - Back Pain/Injury MDM Narrative Medical decision making narrative: At the time of visit patient is resting comfortably on the exam table. Patient appears to be nontoxic. C/o right upper back pain x1 week. He reports he recently started working out and he has been riding a bike and lifting weights. Has tried heating pad and stretching without much relief. States he does not like to take any NSAIDs due to his blood pressure. Denies any chest pain or shortness of breath. Patient does not have any bony tenderness so x-ray was deferred at this time, has tenderness to palpation over the right trapezius musculature. Plan: I suspect patient has a right trapezius muscle strain. Prescription for Medrol Dosepak and cyclobenzaprine was sent to the pharmacy. Supportive measures were discussed with the patient and they voiced understanding discharge instructions and agrees to treatment plan. Return precautions reviewed Differential Diagnosis Differential diagnosis: Likely lumbar radiculopathy, sciatica, strain of lumbar region, renal colic, pyelonephritis, thoracic back pain, AAA and discitis Discharge Plan Discharge Clinical Impression: Strain of right trapezius muscle Qualifiers: Encounter type: initial encounter Qualified Code(s): S46.811A - Strain of other muscles, fascia and tendons at shoulder and upper arm level, right arm, initial encounter Patient Disposition: Home Condition: Stable Instructions: Antibiotic Form, Muscle Strain (ED) Additional Instructions: Take any prescription medication only as prescribed-Medrol Dosepak and cyclobenzaprine Be mindful of sedation precautions given to you if taking a muscle relaxer. May use heat or ice to the affected area Consider massage or chiropractor adjustment if this was discussed with provider May use blue emu, lidocaine patches, or asper cream to affected area- do not apply heat or ice directly over cream- can cause burn. Complete appropriate back stretching exercises. Follow up with your PCP in 3-5 days if symptom persist. Patient Language: Ukrainian Prescriptions: New cyclobenzaprine 10 mg tablet 10 mg PO Q8H PRN (Reason: muscle spasm) 7 Days Qty: 21 0RF methylprednisolone [Medrol (Alessandro)] 4 mg tablets,dose pack See Rx Instructions PO .COMPLEX Qty: 21 0RF Rx Instructions: orally per package directions No Action metoprolol succinate 25 mg tablet extended release 24 hr 25 mg PO DAILY lisinopril-hydrochlorothiazide 20-25 mg tablet amoxicillin-pot clavulanate 875-125 mg tablet 1 tablet PO Q12H Qty: 20 0RF alprazolam 1 mg tablet 1 mg PO DAILY atorvastatin 10 mg tablet 10 mg PO DAILY hydrochlorothiazide 12.5 mg tablet 12.5 mg PO DAILY Follow-up/Referrals: Aleks,DANITA Conway [Primary Care Provider, Unknown] Time of Disposition: 12:33 Quality NIHSS Nursing Documentation ED NIHSS nursing documentation: reviewed/agree
[2025-08-29 12:28] VITALS: BP 147/77; PULSE 91; RESP 18; TEMP 36.6; O2SAT 100
== END 2025-08-29 12:35 | disposition home or self-care (01) ==
PROVIDERS: Emergency Provider Nurse Practitioner Family; PCP Physician Assistant Medical
DX: S46.811A Strain of other muscles, fascia and tendons at shoulder and upper arm level, right arm, initial encounter (principal); X58.XXXA Exposure to other specified factors, initial encounter; E78.00 Pure hypercholesterolemia, unspecified; F41.9 Anxiety disorder, unspecified; F17.210 Nicotine dependence, cigarettes, uncomplicated
CPT/HCPCS: 99213; G0463